=== PATIENT | male | born 1970 | race Caucasian/White ===

== ENCOUNTER 2017-02-03 05:43 | Day surgery (SDC) | payer OTHER ==
[~2017-02-03] VITALS: Ht 191.8 cm; Wt 149.1 kg
[~2017-02-03 05:43] MED LIST: ALBU8HFA IH; AMLO-511 PO; ARIP5TAB9 PO; ASPI-1093 PO; CA ZN PO; CHOL200016 PO; FAMO20 PO; FLUT16H NASAL; ISOS10TA2 PO; METO50 PO; MOME13HF IH; MONT10TA21 PO; TURM500C3 PO; UBID100C10 PO
[2017-02-03] MEDS ORDERED: SODIUM CHLORIDE 0.9% 1,000 ML IV ONE (06:30)
[2017-02-03] MEDS ORDERED: MethylPREDNISolone SOD SUCC 125 MG/2 ML VIAL IVP ONE (08:45)
[2017-02-03] MEDS ORDERED: MethylPREDNISolone SOD SUCC 125 MG/2 ML VIAL ONE (09:14)
[2017-02-03] MEDS ORDERED: ALBUTEROL SULFATE 2.5 MG/0.5 ML NEB SOLUTION NEB ONE (17:34)
[2017-02-03] MEDS ORDERED: LIDOCAINE HCL 4% 50 ML SOLUTION TP ONE (17:34)
[2017-02-03] MEDS ORDERED: LIDOCAINE HCL 2% 30 ML JELLY TP ONE (17:34)
[2017-02-03] MEDS ORDERED: BENZOCAINE 20% 50 MCG/SPRAY 57 GM TP ONE (17:34)
[2017-02-03] MEDS ORDERED: OXYGEN THERAPY IH SCH (20:00)
[2017-02-05] MEDS ORDERED: SODIUM CHLORIDE 0.9% 1,000 ML IV ONE (16:22)
[2017-02-05] MEDS ORDERED: FentaNYL CITRATE-PF 100 MCG/2 ML VIAL ONE (16:22)
[2017-02-05] MEDS ORDERED: MIDAZOLAM HCL 2 MG/2 ML VIAL ONE (16:22)
== END 2017-02-03 10:15 | disposition home or self-care (01) ==
LOC: SURGERY 05:43
PROVIDERS: ATTEND Internal Medicine Critical Care Medicine
DX: J38.4 Edema of larynx (principal)
CPT/HCPCS: 31623; 31624; 71010; 87015; 87070; 87101; 87205; 87220; J2930; 87147; 88108; 88312

== ENCOUNTER 2020-07-05 06:39 | Day surgery (SDC) | payer OTHER ==
[~2020-07-05] VITALS: Ht 193 cm; Wt 153.6 kg
[~2020-07-05 06:39] MED LIST changes: +AMLO-257 PO; -AMLO-511 PO; +ARIP5TAB8 PO; -ARIP5TAB9 PO; -ASPI-1093 PO; +ASPI-1111 PO; +MONT-35 PO; -MONT10TA21 PO; +SODIUM CHLORIDE 0.9% 1,000 ML IV ONE; +SODIUM CHLORIDE 0.9% 1,000 ML ONE
[2020-07-05] MEDS ORDERED: ALBUTEROL SULFATE 2.5 MG/0.5 ML NEB SOLUTION NEB ONE (06:40)
[2020-07-05] MEDS ORDERED: LIDOCAINE 2% 30 ML JELLY TP ONE (06:40)
[2020-07-05] MEDS ORDERED: BENZOCAINE 20% 50 MCG/SPRAY 57 GM TP ONE (06:40)
[2020-07-05] MEDS ORDERED: PRED10 PO (07:18)
[2020-07-05] MEDS ORDERED: FentaNYL CITRATE-PF 100 MCG/2 ML VIAL ONE (07:54)
[2020-07-05] MEDS ORDERED: MIDAZOLAM HCL 2 MG/2 ML VIAL ONE (07:54)
[2020-07-05] MEDS ORDERED: MethylPREDNISolone SOD SUCC 125 MG/2 ML VIAL IVP ONE (09:00)
[2020-07-05] MEDS ORDERED: MethylPREDNISolone SOD SUCC 125 MG/2 ML VIAL ONE (09:19)
[2020-07-05] MEDS ORDERED: OXYGEN THERAPY IH SCH (20:00)
== END 2020-07-05 10:25 | disposition home or self-care (01) ==
LOC: SURGERY 06:39
PROVIDERS: ATTEND Internal Medicine Critical Care Medicine
DX: R05 Cough (principal); R91.8 Other nonspecific abnormal finding of lung field; J34.89 Other specified disorders of nose and nasal sinuses; J98.8 Other specified respiratory disorders; B37.0 Candidal stomatitis; J38.4 Edema of larynx; Z20.828 Contact with and (suspected) exposure to other viral communicable diseases; I10 Essential (primary) hypertension; K21.9 Gastro-esophageal reflux disease without esophagitis; Z79.899 Other long term (current) drug therapy
CPT/HCPCS: 31623; 31624; 71045; 87015; 87070; 87101; 87205; 87206; 87220; 87635; J2250; J2930; J3010; J7030; 88108; 88312; J7613

== ENCOUNTER 2021-07-30 19:46 | Emergency (ER) | payer OTHER ==
[~2021-07-30] VITALS: Ht 193 cm; Wt 113.6 kg
[~2021-07-30 19:46] MED LIST changes: -AMLO-257 PO; +ARIP5TAB37 PO; -ARIP5TAB8 PO; -ASPI-1111 PO; -CA ZN PO; -CHOL200016 PO; -METO50 PO; +PRED10 PO; -SODIUM CHLORIDE 0.9% 1,000 ML IV ONE; -SODIUM CHLORIDE 0.9% 1,000 ML ONE; -TURM500C3 PO; -UBID100C10 PO
[2021-07-30 20:09] VITALS: BP 149/77
== END 2021-07-30 22:36 | disposition left against medical advice (07) ==
LOC: EMS 19:48
DX: J45.909 Unspecified asthma, uncomplicated (principal); Z53.21 Procedure and treatment not carried out due to patient leaving prior to being seen by health care provider

== ENCOUNTER 2024-11-13 06:21 | Day surgery (SDC) | payer OTHER ==
[~2024-11-13] VITALS: Ht 190.5 cm; Wt 148.6 kg
[~2024-11-13 06:21] MED LIST changes: +ALBU18HF12 IH; -ALBU8HFA IH; -ARIP5TAB37 PO; +EMPA10TA3 PO; -FAMO20 PO; -FLUT16H NASAL; +FLUT16SP NASAL; -ISOS10TA2 PO; +METF-1211 PO; -MOME13HF IH; +PRED-729 PO; -PRED10 PO
[2024-11-13] MEDS ORDERED: SODIUM CHLORIDE 0.9% 1,000 ML ONE (06:37)
[2024-11-13] MEDS ORDERED: SODIUM CHLORIDE 0.9% 1,000 ML IV ONE (07:00)
[2024-11-13] MEDS: SODIUM CHLORIDE 0.9% 1,000 ML IV ONE (07:19)
[2024-11-13] MEDS ORDERED: CARV25TA32 PO (07:31)
[2024-11-13] MEDS ORDERED: ZIPR40CA38 PO (07:31)
[2024-11-13] MEDS ORDERED: MOME13HF11 IH (07:31)
[2024-11-13] MEDS ORDERED: ATOR40TA71 PO (07:32)
[2024-11-13 07:56] LABS: GLUCOMETER DEV NAME(LOC) SDS.; GLUCOSE,POINT OF CARE 149 MG/DL (70-110)
[2024-11-13] MEDS ORDERED: FLUMAZENIL 0.1 MG/ML 5 ML VIAL IVP ONE (08:14)
[2024-11-13] MEDS ORDERED: DiphenhydrAMINE HCL 50 MG/ML VIAL ONE (08:14)
[2024-11-13] MEDS ORDERED: SODIUM TETRADECYL SULFATE 3% 60 MG/2 ML VIAL IVP ONE (08:14)
[2024-11-13] MEDS ORDERED: ATROPINE SULFATE 0.1 MG/ML 10 ML SYRINGE IVP ONE (08:14)
[2024-11-13] MEDS ORDERED: NALOXONE HCL 0.4 MG/ML VIAL ONE (08:14)
[2024-11-13] MEDS ORDERED: EPINEPHrine 1:10,000 [1 MG/10 ML] SYRINGE ONE (08:14)
[2024-11-13] MEDS ORDERED: MIDAZOLAM HCL 2 MG/2 ML VIAL ONE (08:15)
[2024-11-13] MEDS ORDERED: FentaNYL CITRATE PF 100 MCG/2 ML VIAL ONE (08:15)
[2024-11-13 09:05] VITALS: PULSE 91; RESP 18; O2SAT 99
[2024-11-13] MEDS ORDERED: MethylPREDNISolone SOD SUCC 125 MG/2 ML VIAL ONE (09:48)
[2024-11-13] MEDS: MethylPREDNISolone SOD SUCC 125 MG/2 ML VIAL IVP ONE (10:16)
[2024-11-13] MEDS ORDERED: LIDOCAINE 2% 11 ML JELLY ONE (12:00)
[2024-11-13] MEDS ORDERED: LIDOCAINE 4% 50 ML SOLUTION ONE (12:00)
[2024-11-13] MEDS ORDERED: BENZOCAINE 20% 50 MCG/SPRAY 57 GM ONE (12:00)
== END 2024-11-13 12:45 | disposition home or self-care (01) ==
LOC: SURGERY 06:21
PROVIDERS: ATTEND Internal Medicine Critical Care Medicine
DX: R05.3 Chronic cough (principal); J38.4 Edema of larynx; B37.0 Candidal stomatitis; G47.30 Sleep apnea, unspecified; I10 Essential (primary) hypertension; Z20.822 Contact with and (suspected) exposure to COVID-19; E11.9 Type 2 diabetes mellitus without complications; Z79.84 Long term (current) use of oral hypoglycemic drugs; Z98.890 Other specified postprocedural states; Z79.899 Other long term (current) drug therapy
CPT/HCPCS: 31623; 82962; 87206; 87101; 87220; 87070; 88108; 31624; 71045; 87015; J3010; J2250; J2919; J7030; J0171; J0461; J1200; J2310; J3490; Z7610